=== PATIENT | male | born 1975 | race Caucasian/White ===

== ENCOUNTER → 2020-09-27 | Outpatient (CLI) | payer BC | LOC: LAB 14:19 → LAB SHORT 14:19 | DX: D48.5 Neoplasm of uncertain behavior of skin (principal) | CPT/HCPCS: 88305 ==

== ENCOUNTER 2023-02-28 12:12 | Day surgery (SDC) | payer OTHER ==
[~2023-02-28] VITALS: Ht 177.8 cm; Wt 80.1 kg
[2023-02-28] MEDS ORDERED: IBUP200 (12:40)
--- NOTE | 2023-02-28 13:05 | NUR ---
02/28/23 1305 Kellen Molina TWO ATTEMPTS AT IV BY MERLIN. FIRST ATTEMPT IN R HAND INFILTRATED. SECOND ATTEMPT IN R FA SUCESSFUL.
[2023-02-28 15:08] VITALS: BP 103/64
== END 2023-02-28 15:21 | disposition home or self-care (01) ==
LOC: ORSCSDS 12:12
PROVIDERS: Surgery
PROC: 0DJD8ZZ Inspection of Lower Intestinal Tract, Via Natural or Artificial Opening Endoscopic (ICD-10-PCS; principal; 2023-02-28 13:45)
DX: K92.1 Melena (principal); K64.8 Other hemorrhoids
CPT/HCPCS: J2704; J7120